=== PATIENT | female | born 1995 | race African-American/Black ===

== ENCOUNTER 2020-01-28 00:17 | Emergency (ER) | payer OTHER ==
[~2020-01-28] VITALS: Ht 165.1 cm; Wt 98.0 kg
[2020-01-28 00:27] VITALS: Ht 165.1 cm; Wt 98.0 kg
[2020-01-28 03:12] VITALS: BP 122/77
== END 2020-01-28 03:12 | disposition home or self-care (01) ==
LOC: ED 00:17
DX: M76.32 Iliotibial band syndrome, left leg (principal); G89.18 Other acute postprocedural pain
CPT/HCPCS: Q0092